=== PATIENT | male | born 1980 | race Caucasian/White ===

== ENCOUNTER 2017-08-20 15:53 | Emergency (ER) | payer OTHER, BC ==
[2017-08-20 16:09] VITALS: BP 146/100; PULSE 74; TEMP 98; BMI 38.6
--- NOTE | 2017-08-20 17:27 | PDOC ---
History of Present Illness - General Chief Complaint: Pain Stated Complaint: HEAVY TILES FELL ON ABD ON 8 DAYS AGO Time Seen by Provider: 08/20/17 16:09 - History of Present Illness Initial Comments: 08/20/17 17:48 36 year old who presents with 2 weeks of low abdominal "pulling" and "stabbing" pain. The patient had several cases of tiles fall onto his abdomen 2 weeks ago. He rested for two days but when he returned to work he felt as though he was unable to lift the large boxes due to the pain. He notes that he went to and urgent care where he was assessed, however he was unable to complete the necessary requirements for worker's comp and comes in today for this complaint. The patient denies fever, blood in urine or stool, urinary retention, and nausea or vomiting. He has no other complaints at this time. PMHX: none PSHX: none Meds: none Allergies: NKDA Tob: no Etoh: no Rec drugs: no Past History - Past Medical History Allergies/Adverse Reactions: Allergies Allergy/AdvReac Type Severity Reaction Status Date / Time No Known Allergies Allergy Verified 05/16/14 21:46 Home Medications: Ambulatory Orders Ibuprofen [Motrin -] 800 mg PO TID #30 tablet 05/16/14 COPD: No - Immunization History Immunization Up to Date: Yes - Suicide/Smoking/Psychosocial Hx Smoking History: Never smoked Have you smoked in the past 12 months: No Information on smoking cessation initiated: No Hx Alcohol Use: No Drug/Substance Use Hx: No Substance Use Type: None Review of Systems - Review of Systems Able to Perform ROS?: Yes Is the patient limited Macedonian proficient: No Constitutional: No: Chills, Diaphoresis, Fever HEENTM: No: Eye Pain, Ear Pain Respiratory: No: Cough, Shortness of Breath Cardiac (ROS): No: Chest Pain, Chest Tightness ABD/GI: No: Constipated, Diarrhea, Nausea, Rectal Bleeding, Vomiting : No: Burning, Dysuria, Hematuria, Pain Musculoskeletal: Yes: Muscle Pain. No: Back Pain Neurological: Yes: Weakness. No: Headache, Numbness, Tingling *Physical Exam - Vital Signs Last Vital Signs Temp Pulse Resp BP Pulse Ox 98 F 74 20 146/100 100 08/20/17 15:54 08/20/17 15:54 08/20/17 15:54 08/20/17 15:54 08/20/17 15:54 - Physical Exam Comments: 08/22/17 07:21 GENERAL: Awake, alert, and fully oriented, in no acute distress HEAD: No signs of trauma, normocephalic, atraumatic EYES: EOMI, sclera anicteric, conjunctiva clear ENT: oropharynx clear without exudates. Moist mucosa LUNGS: No distress, speaks full sentences, clear to auscultation bilaterally HEART: Regular rate and rhythm, normal S1 and S2, no murmurs, rubs or gallops, peripheral pulses normal and equal bilaterally. ABDOMEN: Soft, nontender, normoactive bowel sounds. No guarding, no rebound. No masses EXTREMITIES : Normal inspection, Normal range of motion, no edema. No clubbing or cyanosis. NEUROLOGICAL: Cranial nerves II through XII grossly intact. Normal speech, normal gait, no focal sensorimotor deficits SKIN: Warm, Dry, normal turgor, no rashes or lesions noted ED Treatment Course - LABORATORY CBC & Chemistry Diagram: 08/20/17 18:20 08/20/17 18:20 Medical Decision Making - Medical Decision Making 08/22/17 07:22 36 year old who presents with 2 weeks of low abdominal "pulling" and "stabbing" pain. Patient appears in no acute distress and without significant abdominal pain. Most likely etiologies are muscle strain vs herniation vs appendicitis vs internal bleeding. Will evaluate for these etiologies with lab work and abd pelvic CT. 08/22/17 07:[address] show no acute abnormalities. Patient is stable for discharge. *DC/Admit/Observation/Transfer Diagnosis at time of Disposition: Strain of abdominal wall Qualifiers: Encounter type: initial encounter Qualified Code(s): S39.011A - Strain of muscle, fascia and tendon of abdomen, initial encounter - Discharge Dispostion Disposition: HOME Condition at time of disposition: Stable - Referrals - Patient Instructions Additional Instructions: You need to take the ibuprofen 3 tablets 3 times a day with food don't take on an empty stomach. Follow-up with the Workmen's Compensation doctor as soon as possible. It is important that you find a primary care doctor as well. Return to the emergency department immediately with ANY new, persistent or worsening symptoms. Continue any medications as previously prescribed by your physician. You should follow up with your primary doctor as soon as possible regarding today's emergency department visit. . Please make sure your doctor reviews the results of your emergency evaluation. Thank you for coming to the Emergency Department today for your care. It was a pleasure to see you today. Please note that your evaluation is INCOMPLETE until you follow-up with your doctor. - Post Discharge Activity
[2017-08-20] MEDS ORDERED: ACETAMINOPHEN 1000 MG/100 ML VIAL (NON FORMULARY) IVPB ONE (18:00)
[2017-08-20] MEDS ORDERED: SODIUM CHLORIDE 1,000 ML IV STA (18:00)
--- NOTE | 2017-08-20 18:05 | PDOC ---
Attending Attestation - Resident Resident Name: SreedharshiraElizabeth - ED Attending Attestation I have performed the following: I have examined & evaluated the patient, The case was reviewed & discussed with the resident, I agree w/resident's findings & plan, Exceptions are as noted - HPI HPI: 08/20/17 18:02 "The patient is a 36 year old male, with no PMH, who presents with abdominal pain s/p injury 8 days ago. Patient states that last monday he was lifting a box of heavy tiles when the box fell onto him. He states that the box landed against his abdomen in an awkward position. He reports having pain in his lower abdomen ever since that is worse with walking or any sort of exertion. Pt denies N/V/D. Denies F/C. He went to urgent care and was discharged with motrin , but he states he is still experiencing pain. The patient denies chest pain, shortness of breath, and dizziness. Denies fevers, chills, headache, nausea, vomiting, diarrhea, and constipation. Denies dysuria, frequency, urgency, and hematuria. Allergies: NKA Past surgical history: Social history: PCP: None." - Physicial Exam PE: 08/20/17 18:03 "GENERAL: Awake, alert, and fully oriented, in no acute distress. HEAD: No signs of trauma EYES: PERRLA, EOMI, sclera anicteric, conjunctiva clear ENT: Auricles normal inspection, hearing grossly normal, nares patent, oropharynx clear without exudates. Moist mucosa NECK: Nontender, no stepoffs, Normal ROM, supple, no lymphadenopathy, JVD, or masses LUNGS: Breath sounds equal, clear to auscultation bilaterally. No wheezes, and no crackles HEART: Regular rate and rhythm, normal S1 and S2, no murmurs, rubs or gallops ABDOMEN: + RLQ tenderness, normoactive bowel sounds. No guarding, no rebound. No masses EXTREMITIES: Normal range of motion, no edema. No clubbing or cyanosis. No cords, erythema, or tenderness NEUROLOGICAL: Cranial nerves II through XII intact. 5/5 strength and sensation in all extremities, Normal speech, normal gait, normal cerebellar function SKIN: Warm, Dry, normal turgor, no rashes or lesions noted. " - Medical Decision Making 08/20/17 18:03 36 M with RLQ pain after injury at work 8 days ago. Likely msk injury. No palpable hernias on exam, but will r/o with CT. Pt is tender at mcb[facility]ney's but acute appy very unlikely given lack of fever/N/V. - Labs, UA - CTAP - IVF, tylenol
[2017-08-20] MEDS ORDERED: ACETAMINOPHEN INJECTION 100 ML IVPB ONE (18:12)
[2017-08-20 18:45] LABS: BASO % 0.6 % (0-2.0); EOS % 6.7 % (0-4.5); HEMATOCRIT 42.2 % (35.4-49); HEMOGLOBIN 14.6 GM/dl (11.7-16.9); LYMPH % 31.2 % (8-40); MCHC 34.7 g/dl (32.0-35.9); MEAN CELL VOLUME 83.5 fl (80-96); MEAN PLT VOLUME 7.1 fl (7.5-11.1); NEUT % 51.5 % (42.8-82.8); PLATELET COUNT 226 K/MM3 (134-434); RBC 5.05 M/mm3 (4.00-5.60); RDW 12.2 % (11.9-15.9); URINE APPEARANCE Clear; URINE BILIRUBIN Negative (NEGATIVE); URINE COLOR Yellow; URINE GLUCOSE (UA) Negative (NEGATIVE); URINE KETONE Negative (NEGATIVE); URINE LEUK ESTERASE Negative (NEGATIVE); URINE NITRITE Negative (NEGATIVE); URINE PROTEIN Negative (NEGATIVE); URINE UROBILINOGEN 0.2 (0.2-1.0); WHITE BLOOD COUNT 5.5 K/mm3 (4.0-10.8)
[2017-08-20 19:02] LABS: ALK PHOS 48 U/L (32-92); ANION GAP 7 (8-16); BLOOD UREA NITROGEN 11 mg/dl (7-18); CALCIUM 9.2 mg/dl (8.4-10.2); CHLORIDE 100 mmol/L (98-107); CO2 25 mmol/L (22-28); CREATININE 0.7 mg/dl (0.6-1.3); GLUCOSE,RANDOM 93 mg/dl (74-106); POTASSIUM 3.7 mmol/L (3.5-5.1); SGOT/AST 28 U/L (10-42); SGPT/ALT 28 U/L (10-40); SODIUM 132 mmol/L (136-145); TOT PROT 7.7 g/dl (6.4-8.3)
[2017-08-20 19:04] LABS: BILIRUBIN,TOTAL < 0.3 mg/dl (0.2-1.0)
[2017-08-20 19:05] LABS: EPI CELLS 0-3 /HPF; URINE MUCUS 1+; URINE WBC 0-3 (0-2)
--- NOTE | 2017-08-20 19:32 | PDOC ---
*Physical Exam - Vital Signs Last Vital Signs Temp Pulse Resp BP Pulse Ox 98 F 74 20 146/100 100 08/20/17 15:54 08/20/17 15:54 08/20/17 15:54 08/20/17 15:54 08/20/17 15:54 ED Treatment Course - LABORATORY CBC & Chemistry Diagram: 08/20/17 18:20 08/20/17 18:20 - ADDITIONAL ORDERS Additional order review: Laboratory Results 08/20/17 08/20/17 18:20 18:20 Sodium 132 L Potassium 3.7 Chloride 100 Carbon Dioxide 25 Anion Gap 7 L BUN 11 Creatinine 0.7 Creat Clearance w eGFR > 60 Random Glucose 93 Calcium 9.2 Total Bilirubin < 0.3 AST 28 ALT 28 Alkaline Phosphatase 48 Total Protein 7.7 Albumin 4.0 Urine Color Yellow Urine Appearance Clear Urine pH 7.0 Ur Specific [place] 1.020 Urine Protein Negative Urine Glucose (UA) Negative Urine Ketones Negative Urine Blood Trace-intact H Urine Nitrite Negative Urine Bilirubin Negative Urine Urobilinogen 0.2 Ur Leukocyte Esterase Negative Urine RBC 4-6 Urine WBC 0-3 Ur Epithelial Cells 0-3 Urine Mucus 1+ 08/20/17 18:20 RBC 5.05 MCV 83.5 MCHC 34.7 RDW 12.2 MPV 7.1 L Neutrophils % 51.5 Lymphocytes % 31.2 Monocytes % 10.0 Eosinophils % 6.7 H Basophils % 0.6 - Medications Given in the ED: ED Medications Discontinued Medications Generic Name Dose Route Start Last Admin Trade Name Freq PRN Reason Stop Dose Admin Acetaminophen 1,000 mg 08/20/17 18:00 08/20/17 18:32 Ofirmev Injection - IVPB 08/20/17 18:01 1,000 mg ONCE ONE Administration Sodium Chloride 1,000 mls @ 1,000 mls/hr 08/20/17 18:00 08/20/17 18:32 Normal Saline - IV 08/20/17 18:59 1,000 mls/hr ASDIR STA Administration Progress Note - Progress Note Progress Note: Care of this patient was transferred to [place] from Dr. house at 1900 hrs. This is a 36 -year-old male who had a heavy box 8 days ago. Patient has experienced ongoing moderately severe pain since the injury. Patient has labs and a CAT scan pending. We'll follow-up CAT scan results lab results and if workup is negative for any acute process or pathology patient will be discharged home with pain medication. CAT scan is negative for any acute pathology of the abdomen or pelvis. Patient's blood work is otherwise normal Patient discharged home told to follow-up with his doctor take Tylenol or Motrin as needed for pain. Patient given copies of his CAT scan *DC/Admit/Observation/Transfer Diagnosis at time of Disposition: Strain of abdominal wall Qualifiers: Encounter type: initial encounter Qualified Code(s): S39.011A - Strain of muscle, fascia and tendon of abdomen, initial encounter - Discharge Dispostion Disposition: HOME - Referrals - Patient Instructions Additional Instructions: You need to take the ibuprofen 3 tablets 3 times a day with food don't take on an empty stomach. Follow-up with the Workmen's Compensation doctor as soon as possible. It is important that you find a primary care doctor as well. Return to the emergency department immediately with ANY new, persistent or worsening symptoms. Continue any medications as previously prescribed by your physician. You should follow up with your primary doctor as soon as possible regarding today's emergency department visit. . Please make sure your doctor reviews the results of your emergency evaluation. Thank you for coming to the Emergency Department today for your care. It was a pleasure to see you today. Please note that your evaluation is INCOMPLETE until you follow-up with your doctor. - Post Discharge Activity
[2017-08-20 20:05] LABS: LIPASE 127 U/L (73-393)
== END 2017-08-20 20:35 | disposition home or self-care (01) ==
LOC: FER 15:53
CPT/HCPCS: 36415; 74177-TC; 80053; 81003; 81015; 83690; 85025; 99283-25; J0131; J7030